=== PATIENT | female | born 1950 | race Caucasian/White ===

== ENCOUNTER 2016-12-03 19:25 | Emergency (ER) | payer MEDICARE, BC ==
[2016-12-03 19:40] VITALS: BP 156/91
[2016-12-03] MEDS ORDERED: methylPREDNISolone Sodium Succinate 125 MG/2 ML SDV IVPUSH ONE (20:09)
[2016-12-03] MEDS ORDERED: diphenhydrAMINE 50 MG/ML SDV IVPUSH ONE (20:09)
[2016-12-03] MEDS ORDERED: Famotidine 20 MG/2 ML SDV IVPUSH ONE (20:10)
--- NOTE | 2016-12-03 21:06 | EDM.PDOC ---
ED HPI Skin/Rash - General Chief Complaint: Skin Complaint Stated Complaint: RASH [id number] Time Seen by Provider: 12/03/16 19:35 Source: Reports: Patient History Limitations: Reports: No limitations - History of Present Illness INITIAL COMMENTS - FREE TEXT/NARRATIVE: c/o breaking out in hives shortly after using Bactrim type eye ointment as upper eye lid itching. Medication left from previous use. Has hx of sulfa allergy. 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 Denies breathing difficulty or problems swallowing. No unusual food or other environmental products. Griled cheese for supper. Location, Skin: Reports: generalized Severity: moderate Known Identified Source: possible/maybe Exposure (offending agent or antigen): Reports: antibiotic (PCN, cephalosporin, sulfa,quinolone,mycins) Associated Symptoms: Reports: no other symptoms Similar Symptoms Previously: no - Related Data Allergies Allergy/AdvReac Type Severity Reaction Status Date / Time sulfamethoxazole Allergy Hives Verified 12/03/16 19:43 [From Bactrim] trimethoprim [From Bactrim] Allergy Hives Verified 12/03/16 19:43 Home Meds: Ambulatory Orders Medication Instructions Recorded Confirmed Zolpidem Tartrate [Ambien] 5 mg PO DAILY PRN 12/03/16 12/03/16 Past Medical History Other OB/BYN History: Hysterectomy Psychiatric History: Reports: Depression - Infectious Disease History Infectious Disease History: Reports: Chicken pox, Measles Social & Family History - Tobacco Use Smoking Status *Q: Never Smoker Second Hand Smoke Exposure: Yes - Caffeine Use Caffeine Use: Reports: Coffee, Soda, Tea - Recreational Drug Use Recreational Drug Use: No ED ROS GENERAL - Review of Systems Review Of Systems: See Below Constitutional: Reports: diaphoresis HEENT: Reports: No symptoms Respiratory: Reports: No Symptoms Cardiovascular: Reports: No symptoms GI/Abdominal: Reports: No symptoms Musculoskeletal: Reports: no symptoms Skin: Reports: pruritis, rash (started on face, spread to extremities chest and back) Neurological: Reports: No Symptoms ED EXAM, SKIN/RASH Exam: See Below Exam Limited By: No limitations General Appearance: alert, moderate distress Ears: normal external exam Nose: normal inspection Throat/Mouth: Normal inspection, Normal lips, Normal oropharynx Head: atraumatic, normocephalic Neck: normal inspection. No: lymphadenopathy (L), lymphadenopathy (R) Respiratory/Chest: no respiratory distress, lungs clear, normal breath sounds Cardiovascular: normal peripheral pulses, regular rate, rhythm GI/Abdominal: normal bowel sounds Back Exam: normal inspection Extremities: No: pedal edema Neurological: alert, oriented, normal cognition Psychiatric: normal affect Skin: Warm, Dry, Intact, Rash (generalized derrell urticarial rash confluent chestabdomen and back.). No: Normal color Location, Skin: generalized Associated features: No: warmth, weeping Course - Vital Signs Last Recorded V/S: Last Vital Signs Temp 96.8 F 12/03/16 19:28 Pulse 97 12/03/16 19:28 Resp 17 12/03/16 19:28 BP 156/91 H 12/03/16 19:28 Pulse Ox 99 12/03/16 19:28 - Orders/Labs/Meds Meds: Medications Discontinued Medications Generic Name Dose Route Start Last Admin Trade Name Yohanq PRN Reason Stop Dose Admin Diphenhydramine HCl 25 mg 12/03/16 20:09 12/03/16 20:25 Benadryl IVPUSH 12/03/16 20:10 25 mg ONETIME ONE Administration Famotidine 20 mg 12/03/16 20:10 12/03/16 20:26 Pepcid IVPUSH 12/03/16 20:11 20 mg ONETIME ONE Administration Methylprednisolone Sodium Succinate 125 mg 12/03/16 20:09 12/03/16 20:25 Solu-Medrol IVPUSH 12/03/16 20:10 125 mg ONETIME ONE Administration Prednisone Confirm 12/03/16 21:27 12/03/16 22:27 Prednisone Administered 12/03/16 21:28 Not Given Dose 30 mg .ROUTE .STK-MED ONE - Re-Assessments/Exams Free Text/Narrative Re-Assessment/Exam: Rash improved at time of discharge, no respiratory difficulty. Lung martin clear. Speech clear. Departure - Departure Time of Disposition: 21:15 Disposition: Home, Self-Care 01 Condition: good Clinical Impression: Allergic reaction caused by a drug Qualifiers: Encounter type: initial encounter Qualified Code(s): T78.40XA - Allergy, unspecified, initial encounter Instructions: Hives, [id number] Forms: ED Department Discharge Additional Instructions: Do not take any more bactrim or sulfa medications benadryl 25-50mg every 6 hours for 24 hours then as needed for hives / itching pepcid 10mg every 12 hours x 3 days prednisone 20mg at 6 am with food then 10mg daily for 5 days
[2016-12-03] MEDS ORDERED: predniSONE 10 MG Tab PO ONE (21:27)
[2016-12-03] MEDS ORDERED: predniSONE 10 MG Tab ONE (21:27)
== END 2016-12-03 21:36 | disposition home or self-care (01) ==
LOC: DL.ED 19:25
DX: L50.0 Allergic urticaria (principal); T37.0X5A Adverse effect of sulfonamides, initial encounter; F32.9 Major depressive disorder, single episode, unspecified; Z90.710 Acquired absence of both cervix and uterus
CPT/HCPCS: 96374; 96375; 99282; J1200; J2930; 99284; A9270-GY; S0028

== ENCOUNTER 2017-12-12 15:22 | Emergency (ER) | payer MEDICARE, BC ==
[2017-12-12 15:34] VITALS: BP 191/83
[2017-12-12] MEDS ORDERED: Sodium Chloride 0.9% 10 ML Syringe FLUSH PRN (15:44)
[2017-12-12 16:13] LABS: CHLORIDE,CL 107 mmol/L (101-111); SODIUM,NA 141 mmol/L (135-145)
--- NOTE | 2017-12-12 16:15 | CT ---
Clinical history: 67-year-old 183 pound female with headache and decreased vision right eye. TECHNIQUE: Volume acquisition of data emergency unenhanced CT scan of the head and brain obtained whambar aguirre the patient was lying supine on the Siemens multi slice scanner [place], [place]. All data archived in the PACS system for storage and study (bone/brain windows). No pr evious exams immediately available for comparison. Interpretation: Mild generalized symmetric cerebral cortical atrophy and focal area of anterior parie rosa elena encephalomalacia on the left. No supratentorial or posterior fossa mass lesion and no signs of hydrocephalus. Physiologic midline pineal and symmetric choroid plexus calcifications. Tiny scattered areas of decreased brain attenuation (ischemic infarct) involving periventricular whit e matter, basal ganglia, bilaterally. No sign of acute intracerebral/intraventricular/subarachnoid bleed. Uniformly thick bony calvarium without sign of skull fracture. No extracerebral/intracranial epidural or subdural hematoma. Symmetric clear pneumatization of the paranasal and mastoid sinuses. CONCLUSION: Microvascular ischemic changes and atrophy. No suprasellar or occipital lobe mass lesion. No intracranial bleed.
--- NOTE | 2017-12-12 17:37 | EDM.PDOC ---
Scribed by Elizabeth Honeycutt 12/12/17 1737 for Osmani Koo MD ED HPI GENERAL MEDICAL PROBLEM - General Chief Complaint: ENT Problem Stated Complaint: [id number] BLOOD WORK REQUESTED FROM EYE CLIN Time Seen by Provider: 12/12/17 15:43 Source of Information: Reports: Patient, RN, RN Notes Reviewed, Other (Eye Clinic notes.) History Limitations: Reports: No Limitations - History of Present Illness INITIAL COMMENTS - FREE TEXT/NARRATIVE: Patient presents to the ER from the [facility]. She has scalp tenderness, difficulty swallowing and temporal pain intermittently for 1 week. She has had vision loss/decrease right eye to 20/40. No visible neuropathy/nerve edema. She also has a right temporal headache, difficulty swallowing, ear pain and scalp tenderness. Onset: Today Duration: Constant Location: Reports: Head Quality: Reports: Ache Severity: Moderate Improves with: Reports: None Worsens with: Reports: None Associated Symptoms: Reports: No Other Symptoms Head Pain Score (Numeric/FACES): 1 - Related Data Allergies Allergy/AdvReac Type Severity Reaction Status Date / Time sulfamethoxazole Allergy Hives Verified 12/12/17 15:28 [From Bactrim] trimethoprim [From Bactrim] Allergy Hives Verified 12/12/17 15:28 Home Meds: Home Meds Zolpidem Tartrate [Ambien] 5 mg PO DAILY PRN 12/03/16 [History] Montelukast [Singulair] 10 mg PO BEDTIME 12/12/17 [History] Past Medical History HEENT History: Reports: Hard of Hearing, Impaired Vision Cardiovascular History: Reports: High Cholesterol, Hypertension Other OB/BYN History: Hysterectomy Musculoskeletal History: Reports: Other (See Below) Other Musculoskeletal History: left wrist and ankle surgery Psychiatric History: Reports: Depression - Infectious Disease History Infectious Disease History: Reports: Chicken Pox, Measles - Past Surgical History Female Surgical History: Reports: Section, Hysterectomy Social & Family History - Family History Family Medical History: Noncontributory - Tobacco Use Smoking Status *Q: Never Smoker Second Hand Smoke Exposure: No - Caffeine Use Caffeine Use: Reports: Coffee - Recreational Drug Use Recreational Drug Use: No ED ROS ENT - Review of Systems Review Of Systems: ROS reveals no pertinent complaints other than HPI. ED EXAM, ENT - Physical Exam Exam: See Below Exam Limited By: No Limitations General Appearance: Alert, WD/WN, No Apparent Distress, Obese Eye Exam: Bilateral Eye: Normal Inspection Ears: Normal External Exam, Normal Canal, Hearing Grossly Normal, Normal TMs Nose: Normal Inspection, Normal Mucousa, No Blood Mouth/Throat: Normal Inspection, Normal Gums, Normal Lips, Normal Oropharynx, Normal Teeth Head: Atraumatic, Normocephalic, Other (No tenderness to palpation overlying right temporal artery. ). No: Scalp Swelling, Scalp Tenderness, Facial Swelling , Facial Tenderness, Sinus Tenderness Neck: Other (No carotid bruits) Respiratory/Chest: No Respiratory Distress, Lungs Clear, Normal Breath Sounds, No Accessory Muscle Use, Chest Non-Tender Cardiovascular: Normal Peripheral Pulses, Regular Rate, Rhythm, No Edema, No Gallop, No JVD, No Murmur, No Rub GI/Abdominal: Other (benign obese abdomen) (Female) Exam: Deferred Rectal (Female) Exam: Deferred Back: Normal Inspection, Full Range of Motion Extremities: Normal Inspection, Normal Range of Motion, Non-Tender, No Pedal Edema, Normal Capillary Refill Neurological: Alert, Oriented, CN II-XII Intact, Normal Cognition, Normal Gait, Normal Reflexes, No Motor/Sensory Deficits Psychiatric: Normal Affect, Normal Mood Skin: Warm, Dry, Intact, Normal Color, No Rash Lymphatic: No Adenopathy Course - Vital Signs Last Recorded V/S: Last Vital Signs Temp 36.5 C 12/12/17 15:30 Pulse 78 12/12/17 15:30 Resp 18 12/12/17 15:30 BP 191/83 H 12/12/17 15:30 Pulse Ox 98 12/12/17 15:30 - Orders/Labs/Meds Orders: Active Orders 24 hr Category Date Time Status Peripheral IV Care [RC] . DIRECTED Care 12/12/17 15:44 Active Peripheral IV Insertion Adult [OM.PC] Stat Oth 12/12/17 15:44 Ordered Labs: Laboratory Tests 12/12/17 12/12/17 12/12/17 Range/Units 15:46 15:46 15:46 WBC 6.6 (5.0-10.0) 10^3/uL RBC 4.50 (4.2-5.4) 10^6/uL Hgb 13.8 (12.0-16.0) g/dL Hct 40.0 (37.0-47.0) % MCV 88.9 (80-100) fL MCH 30.7 (27.0-34.0) pg MCHC 34.5 (33.0-35.0) g/dL Plt Count 252 (150-450) 10^3/uL Neut % (Auto) 52.2 (42.2-75.2) % Lymph % (Auto) 35.3 (20.5-50.1) % Russell % (Auto) 9.9 H (2-8) % Eos % (Auto) 2.1 (1.0-3.0) % Baso % (Auto) 0.5 (0.0-1.0) % ESR 7 (0-20) mm/hr Sodium 141 (135-145) mmol/L Potassium 3.8 (3.6-5.0) mmol/L Chloride 107 (101-111) mmol/L Carbon Dioxide 26.0 (21.0-31.0) mmol/L Anion Gap 11.8 BUN 14 (7-18) mg/dL Creatinine 0.7 (0.6-1.3) mg/dL Est Cr Clr Drug Dosing 61.68 mL/min Estimated GFR (MDRD) > 60 BUN/Creatinine Ratio 20.00 Glucose 81 (74-105) mg/dL Calcium 9.7 (8.4-10.2) mg/dl Total Bilirubin 0.5 (0.2-1.0) mg/dL AST 26 (10-42) IU/L ALT 28 (10-60) IU/L Alkaline Phosphatase 92 (42-121) IU/L C-Reactive Protein (0.0-1.3) mg/dL Total Protein 7.6 (6.7-8.2) g/dl Albumin 4.4 (3.2-5.5) g/dl Globulin 3.2 Albumin/Globulin Ratio 1.38 /08/31 Range/Units 15:46 WBC (5.0-10.0) 10^3/uL RBC (4.2-5.4) 10^6/uL Hgb (12.0-16.0) g/dL Hct (37.0-47.0) % MCV (80-100) fL MCH (27.0-34.0) pg MCHC (33.0-35.0) g/dL Plt Count (150-450) 10^3/uL Neut % (Auto) (42.2-75.2) % Lymph % (Auto) (20.5-50.1) % Russell % (Auto) (2-8) % Eos % (Auto) (1.0-3.0) % Baso % (Auto) (0.0-1.0) % ESR (0-20) mm/hr Sodium (135-145) mmol/L Potassium (3.6-5.0) mmol/L Chloride (101-111) mmol/L Carbon Dioxide (21.0-31.0) mmol/L Anion Gap BUN (7-18) mg/dL Creatinine (0.6-1.3) mg/dL Est Cr Clr Drug Dosing mL/min Estimated GFR (MDRD) BUN/Creatinine Ratio Glucose (74-105) mg/dL Calcium (8.4-10.2) mg/dl Total Bilirubin (0.2-1.0) mg/dL AST (10-42) IU/L ALT (10-60) IU/L Alkaline Phosphatase (42-121) IU/L C-Reactive Protein 0.9 (0.0-1.3) mg/dL Total Protein (6.7-8.2) g/dl Albumin (3.2-5.5) g/dl Globulin Albumin/Globulin Ratio Meds: Medications Discontinued Medications Generic Name Dose Route Start Last Admin Trade Name Freq PRN Reason Stop Dose Admin Sodium Chloride 10 ml 12/12/17 15:44 12/12/17 15:48 Saline Flush FLUSH 10 ml ASDIRECTED PRN Administration Keep Vein Open - Radiology Interpretation Free Text/Narrative:: CT HEAD: Microvascular ischemic changes and atrophy. No suprasellar or occipital lobe mass lesion. No intracranial bleed. See rad report. Departure - Departure Time of Disposition: 17:00 Disposition: Home, Self-Care 01 Condition: Good Clinical Impression: Right-sided headache - Discharge Information Instructions: General Headache Without Cause, [id number] Forms: ED Department Discharge Additional Instructions: Follow up in clinic with your doctor if needed. Follow up with ENT specialists on 12/20/17 as scheduled. - My Orders Last 24 Hours: My Active Orders 12/12/17 15:44 Peripheral IV Care [RC] . DIRECTED Peripheral IV Insertion Adult [OM.PC] Stat - Assessment/Plan Last 24 Hours: My Active Orders 12/12/17 15:44 Peripheral IV Care [RC] . DIRECTED Peripheral IV Insertion Adult [OM.PC] Stat I have read and agree with the documentation that has been completed regarding this visit. By signing this record, I attest that the documentation was completed in my physical presence and is an accurate record of the encounter.
== END 2017-12-12 17:13 | disposition home or self-care (01) ==
LOC: DL.ED 15:22
DX: R51 Headache (principal); E78.00 Pure hypercholesterolemia, unspecified; I10 Essential (primary) hypertension; Z88.2 Allergy status to sulfonamides; Z88.1 Allergy status to other antibiotic agents; Z79.899 Other long term (current) drug therapy
CPT/HCPCS: 36415; 70450; 80053; 85025; 85651; 86140; 99284; J7050

== ENCOUNTER 2017-12-21 16:08 | Emergency (ER) | payer MEDICARE, BC ==
[2017-12-21 16:30] VITALS: BP 181/85
== END 2017-12-21 16:35 | disposition left against medical advice (07) ==
LOC: DL.ED 16:08
DX: Z53.21 Procedure and treatment not carried out due to patient leaving prior to being seen by health care provider (principal)

== ENCOUNTER 2020-05-18 06:38 | Day surgery (SDC) | payer MEDICARE, BC ==
[~2020-05-18 06:38] MED LIST: Midazolam 1 MG/ML 2 ML SDV ONE; fentaNYL 100 MCG/2 ML SDV ONE
[2020-05-18] MEDS ORDERED: fentaNYL 100 MCG/2 ML SDV IV ONE ×3 (06:39→07:17)
[2020-05-18] MEDS ORDERED: Midazolam 1 MG/ML 2 ML SDV IV ONE ×3 (06:39→07:18)
[2020-05-18] MEDS ORDERED: Dextrose 5%-0.45% NaCl 1,000 ML IV SCH ×2 (07:00→07:15)
[2020-05-18] MEDS ORDERED: Sodium Chloride 0.9% 10 ML Syringe FLUSH PRN (07:14)
[2020-05-18 09:23] VITALS: BP 132/71; PULSE 86
--- NOTE | 2020-05-18 14:23 | OR ---
DATE: 05/18/2020 PROCEDURE: Esophagogastroduodenoscopy and multiple pinch biopsies. INSTRUMENT USED: [id number] Olympus video panendoscope. PREMEDICATIONS: No oral or topical anesthesia used. Fentanyl 100 mcg intravenous, Versed 2 mg intravenous. Nasal O2 cannula. The procedure was done under pulse oximetry, BP recording, and secured entrance monitor. INDICATION: The patient with persistent upper abdominal pain, dyspepsia, heartburn as well as throat discomfort unexplained and not responsive to medical measures, on long-term PPI. Esophagogastroduodenoscopy is performed for detection of any active erosive lesions, Guerrero esophagus and/or malignancy also under consideration, H. pylori status to be determined, endoscopic hemostasis therapy if needed. DESCRIPTION OF PROCEDURE: The scope was passed with ease. Adequate visualization of the esophagus was made from [id number] areas. No upper esophageal lesions identified. No distal esophageal stricture. No uphill or downhill esophageal varices. No Jocelyn-Green tear. No evidence of erosive esophagitis by Bee criteria. No esophageal polyp or tumor mass identified. Z-line was seen at around 39 cm distal to the oral verge, configuration consistent with grade 1 by ZAP classification. No esophageal polyp or tumor mass identified. Small sliding hiatal hernia was noted. No proximal gastric varices noted. Gastric fundus examination by retroflexion showed no polypoid lesions. No gastric ulcer, malignant mass, or vascular ectasia identified. Duodenal bulb showed no ulcer. Visualized 2nd part of the duodenum was unremarkable. Multiple pinch biopsies were taken from the gastric antrum and proximal body and sent for PyloriTek test for H. pylori, and if negative in an hour, the tissues to be sent for histopathology. No bleeding was noted from any of the visualized areas at the completion of examination. Photographs were taken of the duodenal bulb, gastric antrum, fundus, and distal esophagus. IMPRESSION: Small sliding hiatal hernia. The patient tolerated the procedure well. [facility] /[id number]
== END 2020-05-18 09:20 | disposition home or self-care (01) ==
LOC: DL.ENDO 06:38
PROVIDERS: ATTEND Internal Medicine Gastroenterology
DX: K44.9 Diaphragmatic hernia without obstruction or gangrene (principal); K22.8 Other specified diseases of esophagus; E66.09 Other obesity due to excess calories; Z90.710 Acquired absence of both cervix and uterus; Z90.49 Acquired absence of other specified parts of digestive tract; F32.9 Major depressive disorder, single episode, unspecified; F41.1 Generalized anxiety disorder; I10 Essential (primary) hypertension; E78.5 Hyperlipidemia, unspecified; M19.90 Unspecified osteoarthritis, unspecified site; K21.9 Gastro-esophageal reflux disease without esophagitis; N28.1 Cyst of kidney, acquired; K64.4 Residual hemorrhoidal skin tags; K57.30 Diverticulosis of large intestine without perforation or abscess without bleeding; Z88.8 Allergy status to other drugs, medicaments and biological substances; Z68.31 Body mass index [BMI] 31.0-31.9, adult
CPT/HCPCS: 43239; 87077; 88305; 88342; J2250; J3010; J7042

== ENCOUNTER → 2020-05-25 | Day surgery (SDC) | payer MEDICARE, BC ==
[~2020-05-25] MED LIST changes: +Dextrose 5%-0.45% NaCl 1,000 ML IV SCH; +Midazolam 1 MG/ML 2 ML SDV IV ONE; +Sodium Chloride 0.9% 10 ML Syringe FLUSH PRN; +fentaNYL 100 MCG/2 ML SDV IV ONE
--- NOTE | 2020-05-25 08:36 | OR ---
DATE: 05/25/2020 PROCEDURE: Total colonoscopy. INSTRUMENT USED: [id number] Olympus video colonoscope. PREMEDICATIONS: Fentanyl 150 mcg intravenous, Versed 4 mg intravenous, nasal O2 cannula. The procedure was done under pulse oximetry, BP recording, and secured entrance monitor. INDICATION: The patient with progressive constipation and abdominal pain, unexplained and not responsive to medical measures. Colonoscopic examination is done for detection of any polypoid lesions and removal, endoscopic hemostasis therapy if needed. DESCRIPTION OF PROCEDURE: Initial rectal exam was unremarkable. Rigid anoscopy was normal. The colonoscope was passed with ease. Numerous scattered diverticula were noted in the distal left colon along with significant deformity. The scope was passed with ease up to the ileocecal area. Photographs were taken of the normal-appearing cecum identified by landmarks of appendiceal orifice and double-bulged ileocecal folds. No bleeding was noted from any of the visualized areas at the commencement of the examination. The bowel preparation was found to be adequate, [place] scale 3 in all the regions, total score 9. No stricture. No vascular ectasia. No large isolated ulcerations seen. There was no evidence of diffuse inflammatory bowel disease in the form of friability, contact bleeding, or ulcerations. No polyps or tumor mass identified. Probing the proximal sides of folds and flexures using adequate distention and clearing up the stool material, withdrawal of the scope was made, cecum to rectum time over 6 minutes. No bleeding was noted from any of the visualized areas at the completion of examination. IMPRESSION: Diverticulosis. The patient tolerated the procedure well. [facility] /[id number]
[2020-05-25 09:03] VITALS: BP 117/53; PULSE 77
== END | disposition home or self-care (01) ==
LOC: DL.ENDO 06:17
PROVIDERS: ATTEND Internal Medicine Gastroenterology
DX: K57.30 Diverticulosis of large intestine without perforation or abscess without bleeding (principal); K59.00 Constipation, unspecified; E66.09 Other obesity due to excess calories; F41.1 Generalized anxiety disorder; F32.9 Major depressive disorder, single episode, unspecified; E78.5 Hyperlipidemia, unspecified; I10 Essential (primary) hypertension; K21.9 Gastro-esophageal reflux disease without esophagitis; K64.4 Residual hemorrhoidal skin tags; Z90.89 Acquired absence of other organs; Z88.8 Allergy status to other drugs, medicaments and biological substances
CPT/HCPCS: 45378; J2250; J3010; J7042